=== PATIENT | female | born 1985 | race Caucasian/White ===

== ENCOUNTER 2016-11-07 12:22 | Emergency (ER) | payer OTHER ==
[~2016-11-07] VITALS: Ht 170.2 cm; Wt 98.0 kg
[~2016-11-07 12:22] MED LIST: ALPR-411 PO; BUPR-79 PO; BUSP15TA70 PO; GABA-112 PO; PROM25TA9 PO
[2016-11-07 12:26] VITALS: TEMP 36.8; Ht 170.2 cm; Wt 98.0 kg
[2016-11-07] MEDS ORDERED: BUPRTAB51 PO (12:38)
[2016-11-07] MEDS ORDERED: PREG1CAP28 PO (12:40)
[2016-11-07] MEDS ORDERED: CLIN150C PO (12:42)
[2016-11-07] MEDS ORDERED: IBUP-1450 PO (12:43)
[2016-11-07] MEDS ORDERED: OXYC1TAB3 PO (13:26)
[2016-11-07 14:12] VITALS: BP 118/88; PULSE 96; O2SAT 98
--- NOTE | 2016-11-07 19:42 | EMERGENCY ROOM VISIT NOTE ---
History First contact with patient: 13:04 Chief Complaint: BACK PAIN Stated Complaint: LOW BACK PAIN,L LEG PAIN History of Present Illness The patient is a 31 year old female who presents to the Emergency Room with complaints of persistent lower back pain radiating into the left lower extremity. The patient reports that she has already had an extensive workup for her back. She most recently saw Dr. Palacios in [place], along with Dr. Callahan, both spine surgeons who did not suggest surgical intervention at this time. Dr. Palacios suggested massage therapy and aqua therapy for additional relief. The patient has undergone prior ANN [address] Flores. She also was evaluated by the [facility] in August. She is currently taking gabapentin, Lyrica and tramadol for her pain. The patient denies any significant recent worsening symptoms, lower extremity weakness, foot drop, bladder/bowel incontinence or saddle paresthesias. She is here to discuss further pain management options, and rates her discomfort a 6 out of 10. Review of Systems 10 system review was performed and was negative except for pertinent positives and negatives as indicated in history of present illness Past Medical/Surgical History Medical Problems: (1) Anxiety (2) Asthma (3) Bronchitis (4) decreased movement (5) Depression (6) intrau Surgical Problems: (1) History of tubal ligation (2) History of wisdom tooth extraction Family History FH: cancer FH: kidney disease FH: seizures Social History Smoking Status: Never Smoker Alcohol Use: none Drug Use: none Marital Status: Housing Status: lives with family Occupation Status: unemployed Current/Historical Medications Scheduled Bupropion (Wellbutrin-Xl), 300 MG PO DAILY Buspirone Hcl (Buspar), 15 MG PO BID Pregabalin (Lyrica), 75 MG PO BID Scheduled PRN Clindamycin Hcl (Cleocin), Unknown Dose PO Q6H PRN for Pain Cyclobenzaprine Hcl (Flexeril), 1 TAB PO TID PRN for Muscle Spasms Ibuprofen (Motrin), 600 MG PO Q6H PRN for Pain Oxycodone Ir (Roxicodone Ir), 1-2 TAB PO Q4H PRN for Pain Allergies Coded Allergies: Penicillins (Verified Allergy, Intermediate, HIVES, 11/07/16) Citalopram (Unverified Allergy, Unknown, hives, 11/07/16) Physical Exam Vital Signs Date Time Temp Pulse Resp B/P Pulse Ox O2 Delivery O2 Flow Rate FiO2 11/07/16 14:12 96 20 118/88 98 11/07/16 12:26 36.8 114 18 140/89 98 Room Air Physical Exam CONSTITUTIONAL: Healthy and well nourished. Alert and oriented X 3 with positive affect. She does not appear in any acute distress. HEENT: Normocephalic, atraumatic. Pupils equal, round and reactive. NECK: Full active range of motion without discomfort. RESPIRATORY: Clear to auscultation bilaterally with no wheezing, crackles, rhonchi or stridor. CARDIOVASCULAR: Regular rate and rhythm with no murmurs, rubs or gallops. GASTROINTESTINAL: Bowel sounds present in all quadrants. Soft and nontender to palpation. MUSCULOSKELETAL: Examination shows mild left lower lumbar tenderness to palpation. Negative logroll. Negative sitting straight leg raise. Pedal pulses are intact. Ankle plantar/dorsiflexion strength is 5 out of 5 and symmetric bilaterally. INTEGUMENTARY: No rash or other significant dermatologic conditions noted. NEUROLOGIC: Lower extremity deep tendon reflexes are 2+ and symmetric bilaterally. Medical Decision & Procedures ED Course Patient history and physical exam were performed. Nurse's notes were reviewed. I did review prior office notes from the pain clinic with date of service of 08/19/16. It was suggested that the patient continue with her current medications, and follow up with Dr. Palacios for evaluation. The patient has done this, and Dr. Palacios is suggesting nonsurgical management for now. At this point, I explained to the patient that she really should discuss further pain management issues with her PCP and the pain clinic. She was offered a prescription for OxyIR 5 mg as needed for breakthrough pain, and encouraged to alternate ibuprofen and Tylenol for baseline pain relief. I did explain to the patient that opioid pain management is not recommended given the chronic nature of her pain. I did discuss the risk for addiction with continued chronic ongoing opioid use. The patient voiced understanding, was happy with plan of care, refused any analgesics while in the emergency department, and rated her pain a 5 out of 10 at the time of discharge. Medical Decision See previous sections [place] Drug Monitoring Program Search Results: patient reviewed within database, no issues identified Impression Primary Impression: Left lumbar radiculitis Departure Information Dispostion Home / Self-Care Prescriptions Oxycodone Ir (Roxicodone Ir) 5 Mg Tab 1-2 TAB PO Q4H Y for Pain, #24 TAB For Initial Treatment Prov: Олег Adams PA 11/07/16 Referrals Upendra. Hurley M.D. Forms HOME CARE DOCUMENTATION FORM, IMPORTANT VISIT INFORMATION Patient Instructions A Signature Page, My [facility], ED Sciatica Additional Instructions Continue with your current medications. Ibuprofen 800 mg and/or Tylenol 1000 mg every 8 hours. You may also alternate these medications for more effective pain relief: Ibuprofen --4 HRS--> Tylenol --4 HRS--> ibuprofen --4 HRS--> Tylenol .... OxyIR if needed for worse pain. Discuss further treatment options with your PCP and [facility].
[2017-01-01] MEDS ORDERED: CYCL5TAB PO (09:34)
[2017-07-18] MEDS ORDERED: HYDR-4079 PO (10:41)
[2017-07-18] MEDS ORDERED: TOPI50TA24 PO (10:41)
[2017-07-18] MEDS ORDERED: BUSP5TAB59 PO (10:41)
== END 2016-11-07 14:15 | disposition home or self-care (01) ==
LOC: C.EDB 12:23 → C.EDD 14:15
DX: M54.16 Radiculopathy, lumbar region (principal); J45.909 Unspecified asthma, uncomplicated; F32.9 Major depressive disorder, single episode, unspecified; F41.9 Anxiety disorder, unspecified; Z79.899 Other long term (current) drug therapy

== ENCOUNTER 2017-01-01 14:34 | Emergency (ER) | payer OTHER ==
[~2017-01-01] VITALS: Ht 170.2 cm; Wt 100.4 kg
[~2017-01-01 14:34] MED LIST changes: -ALPR-411 PO; -BUPR-79 PO; +BUPRTAB51 PO; +CLIN150C PO; +CYCL5TAB PO; -GABA-112 PO; +IBUP-1450 PO; +OXYC1TAB3 PO; +PREG1CAP28 PO; -PROM25TA9 PO
[2017-01-01 14:44] VITALS: TEMP 37.2; Ht 170.2 cm; Wt 100.4 kg
[2017-01-01] MEDS ORDERED: PRED20TA PO (15:12)
[2017-01-01] MEDS ORDERED: HYDR-5688 PO ×2 (15:12→16:14)
--- NOTE | 2017-01-01 15:18 | EMERGENCY ROOM VISIT NOTE ---
ED Visit Note First contact with patient: 14:59 CHIEF COMPLAINT: Low back pain HISTORY OF PRESENT ILLNESS: This 31-year-old female patient presents to the emergency department complaining of pain in the low back which began worsening yesterday. The pain was gradual in onset, is now constant and worse with movement. The patient notes the pain as dull and a 7/10. The patient has taken Flexeril and tramadol without relief of the pain. The patient denies any loss of control of their bowel or bladder functions. There has been no leg numbness or weakness, and no change in sensation. No nausea or vomiting or abdominal pain. No chest pain or shortness of breath. No dysuria or increased urinary frequency. The patient has a history of ongoing back issues. She states that she is a surgical candidate, but is not able to undergo surgery because of her family situation. The patient has followed with orthospine and pain management. She states her last MRI was about 2 weeks ago which showed bulging of L5-S1 with impingement. The patient does not have new trauma, and feels this is similar to her chronic pain when it is exacerbated. REVIEW OF SYSTEMS: A review of systems was performed with positives and pertinent negatives listed in the history of present illness. All other systems were reviewed and are negative. 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 Vital signs stable. GENERAL: White female, in no acute distress, nondiaphoretic, well-developed well -nourished. SKIN: The skin was without rashes, erythema, edema, or bruising. Capillary refill less than 2 seconds. NECK: Supple without nuchal rigidity. No cervical spine tenderness. No paraspinous muscle tenderness. HEART: Regular rate and rhythm without murmurs gallops or rubs. LUNGS: Clear to auscultation bilaterally without wheezes, rales or rhonchi. ABDOMEN: Positive bowel sounds x 4. Normal tympanic percussion. Soft, nontender, without masses or organomegaly. Jackson sign negative. MUSCULOSKELETAL: No muscle atrophy, erythema, or edema noted of the back. There is left sided tenderness over the lumbar spinous processes. There is no significant tenderness over the paraspinous muscles bilateral. There is no tenderness over the thoracic spine or paraspinous muscles. There are no muscle spasms present. The patient is slow to move around with maximum tenderness with flexion. Positive straight leg raise test. NEURO: Patient was alert and oriented to person place and time. Normal sensation to light and sharp touch. Deep tendon reflexes 2+ in the lower extremities. Dorsalis pedis pulse 2+ bilaterally. Strength 5/5 and equal in the bilateral lower extremities. EMERGENCY DEPARTMENT COURSE: Physical exam and history were performed. Nursing notes and EMR were reviewed. Evidently the patient has a long-standing history of back pain, and states that she is a surgical candidate. She has been seen a few times in her lifetime at this facility for back pain. She states that she had an MRI 2 weeks ago, and without acute traumatic injury I do not feel additional imaging is necessary at this time. She certainly does not present like cauda equina, spinal abscess, or other acute surgical process. The patient and I had a lengthy discussion regarding options of care. I will provide her a short course of Vicodin and prednisone. She is to use her Flexeril at home. I did review her profile in the [place] drug monitoring program, and she does receive small amounts of tramadol through her primary care physician's office. I do not see any suspicious seeking behavior at this time. The patient was asked to follow-up with her paint crew supervisor and her primary care physician/orthopedic surgeon. She was invited back to the ER anytime with any new, worsening, or concerning symptoms. Current/Historical Medications Scheduled Bupropion (Wellbutrin-Xl), 300 MG PO DAILY Buspirone Hcl (Buspar), 15 MG PO BID Prednisone (Prednisone), 0 PO DAILY Pregabalin (Lyrica), 75 MG PO BID Scheduled PRN Clindamycin Hcl (Cleocin), Unknown Dose PO Q6H PRN for Pain Cyclobenzaprine Hcl (Flexeril), 1 TAB PO TID PRN for Muscle Spasms Hydrocodone/Acetaminophen 5MG/325MG ([place] 5MG/325MG), 1 TABLET PO Q6 PRN for Pain Ibuprofen (Motrin), 600 MG PO Q6H PRN for Pain Oxycodone Ir (Roxicodone Ir), 1-2 TAB PO Q4H PRN for Pain Allergies Coded Allergies: Penicillins (Verified Allergy, Intermediate, HIVES, 11/07/16) Citalopram (Unverified Allergy, Unknown, hives, 11/07/16) Pregabalin (Verified Adverse Reaction, Intermediate, Water retention, difficulty breathing, 01/01/17) Vital Signs Date Time Temp Pulse Resp B/P Pulse Ox O2 Delivery O2 Flow Rate FiO2 01/01/17 14:44 37.2 123 18 132/91 100 Room Air Departure Information Impression Primary Impression: Left-sided low back pain with sciatica Dispostion Home / Self-Care Condition FAIR Prescriptions Prednisone (Prednisone) 20 Mg Tab 0 PO DAILY, #18 TAB 3 DAILY FOR 3 DAYS, THEN 2 DAILY FOR 3 DAYS, THEN 1 DAILY FOR 3 DAYS. Prov: Regis Norman PA-C 01/01/17 Hydrocodone/Acetaminophen 5MG/325MG ([place] 5MG/325MG) Tab 1 TABLET PO Q6 Y for Pain, #12 TAB For Initial Treatment Prov: Regis Norman PA-C 01/01/17 Forms HOME CARE DOCUMENTATION FORM, IMPORTANT VISIT INFORMATION Patient Instructions My [facility] Additional Instructions You were seen and evaluated today on an emergency basis only. This is not a substitute for, or an effort to provide, complete comprehensive medical care. It is not possible to recognize and treat all injuries or illnesses in a single emergency department visit. For this reason it is recommended that you followup with your orthopedic surgery specialist and paint crew supervisor for ongoing care and evaluation. For baseline pain relief you may alternate ibuprofen and acetaminophen every 4 hours for pain control. Take 600 mg ibuprofen (Advil) and then 4 hours later take 1000 mg acetaminophen (Tylenol). Do not take more than 3000 mg acetaminophen in a single day. [place] (hydrocodone/acetaminophen) 5/325 mg every 6 hours as needed for worsening breakthrough pain. Do not drink or drive on [place]. This medication will likely make you tired. Do not take [place] and Tylenol at the same time as both contain acetaminophen. [place] may cause constipation. You may wish to take an [id number] stool softener like Colace if this occurs. Take prednisone as prescribed. Continue Flexeril at home as previously provided You are welcome to return to the emergency department anytime with new, worsening, or concerning symptoms.
[2017-01-01] MEDS ORDERED: PRVHFAIN INH (15:25)
[2017-01-01] MEDS ORDERED: BUSP-8 PO (15:25)
[2017-01-01] MEDS ORDERED: BUPR150T5 PO (15:25)
[2017-01-01] MEDS ORDERED: TOPI25TA99 PO (15:25)
[2017-01-01] MEDS ORDERED: IBUP-1277 PO (15:25)
[2017-01-01 15:33] VITALS: BP 133/89; PULSE 107; O2SAT 98
[2017-07-18] MEDS ORDERED: TOPI50TA24 PO (10:41)
[2017-07-18] MEDS ORDERED: BUSP5TAB59 PO (10:41)
[2017-07-18] MEDS ORDERED: HYDR-4079 PO (10:41)
== END 2017-01-01 15:35 | disposition home or self-care (01) ==
LOC: C.EDB 14:36 → C.EDD 15:35
DX: M54.42 Lumbago with sciatica, left side (principal); G89.29 Other chronic pain; Z79.52 Long term (current) use of systemic steroids; Z79.899 Other long term (current) drug therapy

== ENCOUNTER → 2017-03-23 | Outpatient (CLI) | payer OTHER ==
[~2017-03-23] MED LIST changes: +BUPR150T5 PO; -BUPRTAB51 PO; +BUSP-8 PO; -BUSP15TA70 PO; +BUSP5TAB59 PO; -CLIN150C PO; +HYDR-4079 PO; +HYDR-5688 PO; +IBUP-1277 PO; -IBUP-1450 PO; -OXYC1TAB3 PO; +PRED20TA PO; -PREG1CAP28 PO; +PRVHFAIN INH; +TOPI25TA99 PO; +TOPI50TA24 PO
== END | disposition home or self-care (01) ==
LOC: C.PAPS 10:23
PROVIDERS: ATTEND Physician Assistant
DX: Z12.4 Encounter for screening for malignant neoplasm of cervix (principal)

== ENCOUNTER → 2017-03-23 | Outpatient (CLI) | payer OTHER ==
[2017-03-23 15:40] LABS: BASO % 0.8 %; BASO ABS # 0.05 K/uL (0-0.2); COMPLETE YES; EOS % 6.2 %; HEMATOCRIT 39.7 % (37-47); IG% 0.3 %; LYMPH % 31.9 %; MEAN CELL VOLUME 87.8 fL (80-100); MEAN CORPUSCULAR HEMOGLOBIN 30.8 pg (25-34); MEAN PLATELET VOLUME 10.7 fL (7.4-10.4); MONO % 8.2 %; NEUT % 52.6 %; PLATELET COUNT 210 K/uL (130-400); RED BLOOD COUNT 4.52 M/uL (4.2-5.4); WHITE BLOOD COUNT 6.59 K/uL (4.8-10.8)
== END | disposition home or self-care (01) ==
LOC: C.LAB1850 14:06
PROVIDERS: ATTEND Physician Assistant
DX: N92.0 Excessive and frequent menstruation with regular cycle (principal)

== ENCOUNTER → 2017-07-12 | Outpatient (CLI) | payer SELFPAY ==
[~2017-07-12] MED LIST changes: -HYDR-5688 PO; -PRED20TA PO
[2017-07-12 14:01] LABS: BASO % 0.5 %; BASO ABS # 0.04 K/uL (0-0.2); COMPLETE YES; HEMATOCRIT 40.6 % (37-47); IG% 0.3 %; LYMPH % 23.3 %; MEAN CELL VOLUME 90.2 fL (80-100); MEAN CORPUSCULAR HEMOGLOBIN 30.4 pg (25-34); MEAN CORPUSCULAR HGB CONC 33.7 g/dl (32-36); MEAN PLATELET VOLUME 11.5 fL (7.4-10.4); MONO % 7.5 %; NEUT % 64.4 %; PLATELET COUNT 194 K/uL (130-400); WHITE BLOOD COUNT 7.72 K/uL (4.8-10.8)
== END | disposition home or self-care (01) ==
LOC: C.LABBC 09:31
PROVIDERS: ATTEND Orthopaedic Surgery Orthopaedic Surgery of the Spine
DX: Z01.812 Encounter for preprocedural laboratory examination (principal)

== ENCOUNTER 2017-07-24 07:19 | Inpatient (IN) | payer OTHER ==
[2017-07-18 10:42] VITALS: BMI 31.0
[2017-07-24] VITALS (10 sets, daily range): BP systolic 100–128; BP diastolic 58–80; PULSE 88–118; TEMP 36.3–36.9; O2SAT 99–100; Ht 170.2 cm; Wt 88.0 kg
[~2017-07-24] VITALS: Ht 170.2 cm; Wt 88.0 kg
[~2017-07-24 07:19] MED LIST changes: -BUSP-8 PO; +CLINDAMYCIN 600 MG/54 ML D5W IV SCH; +LACTATED RINGER'S 1000ML 1,000 ML IV SCH; +SODIUM CHLORIDE 0.9% 1000ML 1,000 ML IV SCH; -TOPI25TA99 PO
[2017-07-24] MEDS ORDERED: NEOSTIGMINE METHYLSULFATE 5 MG/5 ML SYR ONE (08:44)
[2017-07-24] MEDS ORDERED: DEXAMETHASONE SOD INJ 4 MG/ML VIAL ONE (08:44)
[2017-07-24] MEDS ORDERED: ONDANSETRON INJ 2 MG/ML 2 ML VIAL ONE (08:44)
[2017-07-24] MEDS ORDERED: GLYCOPYRROLATE INJ 0.2 MG/ML VIAL ONE (08:44)
[2017-07-24] MEDS ORDERED: MIDAZOLAM HCL 1 MG/ML 2ML VIAL ONE ×2 (08:44→09:50)
[2017-07-24] MEDS ORDERED: LIDOCAINE HCL 2% 2 ML VIAL (20MG/ML) ONE (08:44)
[2017-07-24] MEDS ORDERED: PROPOFOL IV EMULSION 10 MG/ML 20 ML VIAL IV ONE (08:44)
[2017-07-24] MEDS ORDERED: FENTANYL CITRATE INJ 50 MCG/1 ML 2 ML VIAL ONE ×3 (08:45→11:04)
--- NOTE | 2017-07-24 08:56 | History and Physical ---
History & Physical Date Jul 24, 2017. Chief Complaint Back and lower extremity difficulty paresthesias inability to function and inability to lift and move her children and function appropriately History of Present Illness The patient is a 32 year old female with complaints of back and significant lower extremity difficulty mostly back pain dominant over leg pain Past Medical/Surgical History Medical Problems: (1) Anxiety (2) Asthma (3) Bronchitis (4) decreased movement (5) Depression (6) intrau Surgical Problems: (1) History of tubal ligation (2) History of wisdom tooth extraction Additional History Hepatic Disease: No Endocrine Disorder: No Kidney Disease: No Hypertension: No Heart Disease: No Bleeding Tendencies: No Infectious Diseases: No Allergies Coded Allergies: Penicillins (Verified Allergy, Intermediate, HIVES, 07/24/17) Citalopram (Unverified Allergy, Unknown, hives, 07/24/17) Pregabalin (Verified Adverse Reaction, Intermediate, Water retention, difficulty breathing, 07/24/17) Home Medications Scheduled Bupropion Hcl (Bupropion Hcl Xl), 150 MG PO QAM Buspirone Hcl (Buspirone Hcl), 5 MG PO BID Topiramate (Topamax), 50 MG PO BID Scheduled PRN Albuterol (Ventolin Hfa), 2 PUFFS INH UD PRN for SOB/Wheezing Cyclobenzaprine Hcl (Flexeril), 15 MG PO TID PRN for Muscle Spasm Hydrocodone/Acetaminophen 10MG/325MG ([place] 10MG/325MG), 1-2 TABS PO Q6H PRN for Pain Ibuprofen (Advil), 400-600 MG PO Q6H PRN for Pain Physical Examination Skin: warm/dry Eyes: normal inspection ENT: normal ENT inspection Head: normocephalic Neck: supple Respiratory/Chest: lungs clear Cardiovascular: regular rate, rhythm Abdomen / GI: normal bowel sounds Back: normal inspection Extremities: normal inspection Genitourinary - Female: external genitalia normal Neurologic/Psych: no motor/sensory deficits Diagnosis Degenerative and unstable disc segment of the spine at L5-S1 ASA Classification: ASA Class II Plan of Treatment Posterior lumbar interbody fusion L5-S1
[2017-07-24] MEDS ORDERED: SCOPOLAMINE 1.5 MG TDSY TD ONE (09:04)
[2017-07-24] MEDS ORDERED: THROMBIN FOR SOLN 20000 UNIT KIT ONE (09:12)
[2017-07-24] MEDS ORDERED: GELATIN SPONGE SZ 100 ONE (09:12)
[2017-07-24] MEDS ORDERED: BUPIVACAINE/EPINEPHRINE 0.5% MPF 1:200,000 30 ML VIAL ONE (09:13)
[2017-07-24] MEDS ORDERED: BACITRACIN 50000 UNIT VIAL ONE (09:13)
[2017-07-24] MEDS ORDERED: VANCOMYCIN HCL 1000MG/20ML VIAL ONE ×3 (09:13→10:15)
[2017-07-24] MEDS ORDERED: NURSING VERBAL MED ORDER ONE (09:15)
[2017-07-24] MEDS ORDERED: EpHEDrine SULFATE INJ 50 MG/ML AMP IV PRN (09:30)
[2017-07-24] MEDS ORDERED: ONDANSETRON INJ 2 MG/ML 2 ML VIAL IV PRN ×2 (09:30→12:15)
[2017-07-24] MEDS ORDERED: ATROPINE SULFATE 0.1 MG/ML 5ML SYR IV PRN (09:30)
[2017-07-24] MEDS ORDERED: ESMOLOL HCL 10 MG/ML 10 ML VIAL ONE (09:55)
--- NOTE | 2017-07-24 11:45 | DIAGNOSTIC IMAGING REPORT ---
SPINE ONE VIEW, ANY LEVEL CLINICAL HISTORY: L5-S1 FUSION/INTERBODY COMPARISON STUDY: Lumbar spine MRI December 09, 2016. Fluoroscopy time: 13 seconds. FINDINGS: Single lateral fluoroscopic image demonstrates an L5-S1 discectomy with interbody spacer placement. There are pedicle screws at the L5 and S1 levels. IMPRESSION: Lateral fluoroscopic image demonstrating an L5-S1 discectomy with L5 and S1 pedicle screws. Electronically signed by: Sj Gleason M.D. 07/24/2017 11:44 AM Dictated Date/Time: 07/24/2017 11:43 AM
[2017-07-24] MEDS ORDERED: ROCURONIUM BROMIDE 10 MG/ML 5 ML VIAL IV ONE (11:48)
--- NOTE | 2017-07-24 12:07 | [facility] Post Operative Brief Note ---
Immediate Operative Summary Operative Date Jul 24, 2017. Pre-Operative Diagnosis Degenerative and unstable disc segment of the spine at L5-S1 Post-Operative Diagnosis Degenerative and unstable disc segment of the spine at L5-S1 Procedure(s) Performed L5-S1 Posterior Lumbar Interbody Fusion Surgeon Dr. Martinez Mortgage Loan Officer Surgeon(s) Fan Nuñez PA-C Estimated Blood Loss 50ml Findings instability Specimens none per surgeon Disposition Recovery Room / PACU
[2017-07-24] MEDS ORDERED: LORAZEPAM 1 MG TAB PO PRN (12:15)
[2017-07-24] MEDS ORDERED: HYDROmorphone INJ 2 MG/ML SYR/VIAL IV PRN (12:15)
[2017-07-24] MEDS ORDERED: LORAZEPAM INJ 1 MG in SYRINGE 0 ML IV PRN (12:15)
[2017-07-24] MEDS ORDERED: MAGNESIUM HYDROXIDE SUSP 30 ML UDC PO PRN (12:15)
[2017-07-24] MEDS ORDERED: METOCLOPRAMIDE HCL INJ 5 MG/ML 2 ML VIAL IV PRN (12:15)
[2017-07-24] MEDS ORDERED: ALBUTEROL HFA 8 GM INHALER INH PRN (12:15)
[2017-07-24] MEDS ORDERED: PROMETHAZINE HCL INJ 12.5 MG in SODIUM CHLORIDE 0.9% 50ML 50 ML IV PRN (12:15)
[2017-07-24] MEDS ORDERED: ACETAMINOPHEN 325 MG TAB PO PRN (12:15)
[2017-07-24] MEDS ORDERED: OXYCODONE/ACETAMINOPHEN 5-325 TAB PO PRN ×2 (12:15)
[2017-07-24] MEDS: FENTANYL CITRATE INJ 50 MCG/1 ML 2 ML VIAL IV PRN ×4 (12:19→12:39)
[2017-07-24] MEDS ORDERED: MoRPHine SULFATE 4 MG/ML 1 ML CARP\\VIAL ONE (13:02)
[2017-07-24] MEDS: MoRPHine SULFATE 10 MG/ML CARP/VIAL IV PRN ×2 (13:03→13:08)
--- NOTE | 2017-07-24 13:34 | OPERATIVE REPORT ---
DATE OF OPERATION: 07/24/2017 PREOPERATIVE DIAGNOSIS: Instability, lumbar spine L5-S1, severely degenerative disk L5-S1, lumbar spine. PROCEDURE: Posterior lumbar interbody fusion, L5-S1, decompression of nerve roots. We used 2 bilateral cage implants and polyethylene ketone placed in the interval at L5-S1 locked down with a pedicle screw construct single level, L5 to the sacrum. We also bone grafted out over the transverse processes to complete the 360 fusion. SURGEON: Dr. Martinez. FILLER BLOCK INSERTER REMOVER: Fan Nuñez PA-C. COMPLICATIONS: Zero. BLOOD LOSS: Less than 50. COMORBIDITIES: Included obesity. DESCRIPTION OF PROCEDURE: The patient was taken to the operating room, a general intubated anesthetic provided to the patient, placed prone, scrubbed, prepped and draped sterile. We commenced with surgery, we made a skin incision and fascia incision. We came down right at the interspace of L5-S1, putting in deep self-retaining retractor. We decompressed the neural elements which will be the 5th and S1 nerve roots bilaterally taking off ligamentum and lamina, doing a complete laminectomy, partial facetectomy. We safely instrumented the spine. I was able to get pedicle screws safely placed and anatomically located at the sacrum and L5 on the left and sacrum and L5 on the right, very pleased with the positioning. We then retracted the dura left side, right side and did an interbody bone grafting, complete discectomy was offered, plus an interbody device placed at L5-S1 bilateral. We tightened down the construct. We bone grafted out over the transverse processes. Prior to this, we had irrigated with approximately 600 mL of fluid. We spread vancomycin in the deep layer and the superficial layer, closed in layers over a Hemovac drain. Sterile dressings applied. The patient returned to PACU stable. Sponge and needle count correct. No complications. I attest to the content of the Intraoperative Record and any orders documented therein. Any exception s are noted below.
--- NOTE | 2017-07-24 14:29 | Anesthesiology Progress Note ---
Anesthesia Post Op Note Date & Time Jul 24, 2017 at 14:29 Vital Signs Vital Signs Past 12 Hours Date Time Temp Pulse Resp B/P (MAP) Pulse Ox O2 Delivery O2 Flow Rate FiO2 07/24/17 14:23 100 Nasal Cannula 4.0 07/24/17 13:50 100 Nasal Cannula 4.0 07/24/17 13:50 36.7 116 16 125/77 (93) 100 Nasal Cannula 4.0 07/24/17 13:35 118 18 130/71 100 Nasal Cannula 4 07/24/17 13:20 36.4 121 18 133/83 100 Nasal Cannula 4 07/24/17 13:10 121 18 125/78 100 Oxymask 10 07/24/17 13:00 118 18 129/71 100 Nasal Cannula 4 07/24/17 12:50 106 18 137/71 100 Oxymask 10 07/24/17 12:40 85 18 150/62 100 Oxymask 10 07/24/17 12:30 36.4 110 18 143/75 100 Oxymask 10 07/24/17 12:20 113 18 132/67 100 Oxymask 10 07/24/17 12:14 36.1 127 18 108/65 100 Oxymask 10 07/24/17 08:08 36.9 118 18 114/75 (88) 100 Room Air Notes Mental Status: alert / awake / arousable, participated in evaluation Pt Amnestic to Procedure: Yes Nausea / Vomiting: adequately controlled Pain: adequately controlled Airway Patency, RR, SpO2: stable & adequate BP & HR: stable & adequate Hydration State: stable & adequate Anesthetic Complications: no major complications apparent
[2017-07-24] MEDS: SODIUM CHLORIDE 0.9% 1000ML 1,000 ML IV SCH ×2 (14:50→23:34)
[2017-07-24] MEDS: HYDROmorphone INJ 1 MG/ML SYR IV PRN ×2 (14:53→20:02)
[2017-07-24] MEDS: ACETAMINOPHEN IV 1,000 MG in EMPTY BAG 0 ML IV SCH ×2 (15:47→23:35)
[2017-07-24] MEDS: KETOROLAC TROMETHAMINE 30 MG/ML VIAL IV. SCH ×2 (15:48→21:48)
[2017-07-24] MEDS: CHECK SCOPOLAMINE PATCH PLACEMENT SCH ×2 (15:48→23:35)
[2017-07-24] MEDS: DEXAMETHASONE INJ 10 MG in SYRINGE 0 ML IV SCH (17:52)
[2017-07-24] MEDS: CLINDAMYCIN IV 600 MG in DEXTROSE 5% 50ML 50 ML IV SCH (17:55)
[2017-07-24] MEDS: TOPIRAMATE 25 MG TAB PO SCH (21:46)
[2017-07-25] MEDS: CLINDAMYCIN IV 600 MG in DEXTROSE 5% 50ML 50 ML IV SCH (01:51)
[2017-07-25] MEDS: DEXAMETHASONE INJ 10 MG in SYRINGE 0 ML IV SCH ×3 (01:51→18:39)
[2017-07-25 03:38] VITALS: BP 104/63; PULSE 105; TEMP 36.8; O2SAT 100
[2017-07-25] MEDS: KETOROLAC TROMETHAMINE 30 MG/ML VIAL IV. SCH ×3 (03:53→15:42)
[2017-07-25] MEDS ORDERED: NURSING VERBAL MED ORDER ONE (05:30)
[2017-07-25] MEDS ORDERED: BISACODYL 10 MG SUPP PR PRN (06:00)
[2017-07-25] MEDS ORDERED: BISACODYL 5 MG TABEC PO PRN (06:00)
[2017-07-25 07:39] VITALS: BP 128/77; PULSE 120; PULSE 80; TEMP 36.8; O2SAT 98
--- NOTE | 2017-07-25 07:56 | Discharge Instructions ---
Discharge Instructions Date of Service Jul 25, 2017. Admission Reason for Admission: Degenerative Disc Disease Discharge Discharge Diagnosis / Problem: instability L5-S1 Discharge Goals Goal(s): Improve function Activity Recommendations Activity Limitations: as noted below Lifting Limitations: until after follow-up appointment Exercise/Sports Limitations: until after follow-up appointment May Resume Sexual Activity: after follow-up appointment Shower/Bathe: keep incision dry . Instructions / Follow-Up Instructions / Follow-Up MEDICATIONS: Please take your prescriptions as instructed at your pre-op appointment. SPECIAL CARE: The following information is intended to answer some of the common questions and concerns regarding your surgery. Each patient is an individual and receives individual counselling throughout the course of treatment, from diagnosis to surgery all the way through recovery. What follows is not an exhaustive list, but should be a useful guide to some of the common questions and concerns patients have regarding their surgeries. These are not provided to keep you from calling us; rather, they give you something accurate and concrete to reference as you recover from your procedure. If you need us, we are available to you. As always, if you are not sure about something, call us at [phone]. MEDICAL EMERGENCIES: For these conditions, call 911 or go to your local hospital-based Emergency Department - not [facility] or equivalent. * Paralysis * Severe chest pain or difficulty breathing * Swelling or redness of either leg Spine procedures can be rather complex and though complications are rare, they do occur. In such cases, effective advice regarding emergency situations cannot always be addressed over the telephone. You may be referred to the emergency department for more effective management of your problem. Activity Limitations: It is important to give your body time to heal, so please limit your activities : * In general, don't do anything that moves your spine too much. You should avoid contact sports, twisting or heavy lifting while you recover. * 5-10 pounds is all you should attempt to lift. * You should not plan on driving for approximately 3 weeks and you should avoid traveling more than 30-45 minutes at a time. Longer trips should be broken down with walking breaks spaced appropriately. * Physical therapy is not usually required. * Walking and good posture practices will help you recover and regain your function. * Avoid straining or sudden changes in position. * In general, the goal is to take it easy and recover. Don't cause any new problems. Just relax. Showers: * Do not take a bath, use a Jacuzzi or hot tub or otherwise submerge your incision. * It is usually safe to take a shower 4-5 days after your surgery. * Your incision does not require any special creams or ointments. * Simply clean it with soap and water, dry and re-dress with a clean bandage afterwards. Incision: * Keep incision clean, dry and protected until your first follow-up appointment. * Some amount of drainage and redness is normal. Any drainage should be fairly clear and not have a foul odor. * If you feel anything is wrong or you have excessive drainage, please call us. * Your stitches and colby will be removed 10-14 days after your surgery. At the time of your first post-op visit. * Neck surgeries are typically closed with a suture underneath the skin. The steri-strips over the incision should be maintained until we see you in the office. Bracing: * You may be provided with a back or neck brace to encourage good posture and prevent injury. It will remind you not to do too much as you heal and will alert others to the fact that you have had a surgery. * Back braces may be removed for showers and when you are resting at home. They must be worn when you are walking around for any period of time or for travel. * For neck surgery, you will likely be provided with two cervical collars. The soft collar (Leivasy or foam rubber) is worn most commonly throughout the day and while sleeping. The plastic collar (provided at the hospital) is for showering/bathing. * Except while eating, collars should remain in place. More specifically, bracing is provided for a purpose and should be worn. * Please obtain your brace or collars prior to your operation and bring them to the hospital with you on the day of surgery. * You should also bring your collars to your post-op appointment with Dr. Martinez. You should always take good care of your body and practice healthy habits, especially following surgery. You should: * Follow your doctor's treatment plan * Sit and stand properly with good posture (ears over shoulders, shoulders over hips) Don't slouch * Learn to lift correctly * Exercise regularly (low-impact aerobic exercise is especially good, but check with your doctor first) * Generally, be up and walking for 5-10 minutes at a time at least 3-4 times per day from the day you get home * Increasing walking to tolerance until you can walk for 20-30 minutes at a time * Attain and maintain a healthy body weight * Eat healthy foods ( a well-balanced, low-fat diet rich in fruits and vegetables) and get enough calcium * Avoid excessive use of alcohol When to call our office - If you notice any of the following: * Increased pain not relieve by pain medicine * Fevers greater then 100 degrees F, chills or flu symptoms * Increased redness around incision * Drainage from the incision that is not clear * Any foul smelling drainage * Swelling or fluid collection beneath the skin Miscellaneous: * In the hospital, you may be given a walker or cane for support while walking. These are temporary needs and are intended to prevent injuries due to falls. You may discontinue them when you feel strong and steady enough on your feet. * Sleep in a comfortable position. We find that many patients find a lounge chair or recliner with several pillows to be beneficial in the early post-operative period. * The support stockings should be used for 7-10 days and may be discontinued when you are back to walking more and conducting usual household activities. No problem is insignificant. We are here to help you and get you well. Contact us at [phone]. Definitions: Foraminotomy: If part of the disc or a bone spur (osteophyte) is pressing on a nerve as it leaves the vertebra (through an exit called the foramen), a foraminotomy may be done. Otomy means "to make an opening." A foraminotomy is making the opening of the foramen larger, so the nerve can exit without being compressed. Laminotomy: Similar to the foraminotomy, a laminotomy makes a larger opening, this time in your bony plate protecting your spinal canal and spinal cord (the lamina). The lamina may be pressing on your nerve, so the surgeon may make more room for the nerves using a laminotomy. Laminectomy: Sometimes, a laminotomy is not sufficient. The surgeon may need to remove all or part of the lamina. This procedure is called a laminectomy. This can often be done at many levels without any harmful effects. Current Hospital Diet Patient's current hospital diet: Regular Diet Discharge Diet Recommended Diet: Regular Diet Procedures Procedures Performed: L5-S1 Posterior Lumbar Interbody Fusion Pending Studies Studies pending at discharge: no Medical Emergencies . Who to Call and When: Medical Emergencies: If at any time you feel your situation is an emergency, please call 911 immediately. . Non-Emergent Contact Non-Emergency issues call your: Surgeon . "Provider Documentation" section prepared by Nikolas Martinez. . VTE Core Measure Inpt VTE Proph given/why not?: Treatment not indicated
[2017-07-25] MEDS: CHECK SCOPOLAMINE PATCH PLACEMENT SCH ×2 (08:03→15:46)
[2017-07-25] MEDS: HYDROmorphone INJ 1 MG/ML SYR IV PRN ×2 (08:16→15:28)
[2017-07-25] MEDS: ACETAMINOPHEN IV 1,000 MG in EMPTY BAG 0 ML IV SCH ×2 (08:17→15:42)
[2017-07-25] MEDS: POLYETHYLENE (MIRALAX) 17 GM PACK PO SCH (08:17)
[2017-07-25] MEDS: TOPIRAMATE 25 MG TAB PO SCH ×2 (08:18→20:52)
[2017-07-25] MEDS: BuPROPion XL 150 MG TABCR PO SCH (08:18)
--- NOTE | 2017-07-25 08:59 | Anesthesiology Progress Note ---
Anesthesia Post Op Note Date & Time Jul 25, 2017 at 08:58 Vital Signs Pain Intensity: 6.0 Vital Signs Past 12 Hours Date Time Temp Pulse Resp B/P (MAP) Pulse Ox O2 Delivery O2 Flow Rate FiO2 07/25/17 07:59 Room Air 07/25/17 07:39 36.8 120 14 128/77 (94) 98 Room Air 80 07/25/17 03:38 36.8 105 16 104/63 (77) 100 Room Air 07/24/17 23:40 Room Air 07/24/17 22:58 36.9 105 14 117/61 (79) 99 Room Air Notes Mental Status: alert / awake / arousable, participated in evaluation Pt Amnestic to Procedure: Yes Nausea / Vomiting: adequately controlled Pain: adequately controlled Airway Patency, RR, SpO2: stable & adequate BP & HR: stable & adequate Hydration State: stable & adequate Anesthetic Complications: no major complications apparent
[2017-07-25 12:07] VITALS: BP 105/69; PULSE 110; TEMP 36.4; O2SAT 100
[2017-07-25 15:13] VITALS: BP 112/65; PULSE 116; TEMP 36.8; O2SAT 100
[2017-07-25 23:27] VITALS: BP 111/69; PULSE 78; TEMP 36.5; O2SAT 97
[2017-07-26] MEDS: ACETAMINOPHEN IV 1,000 MG in EMPTY BAG 0 ML IV SCH ×2 (00:09→08:39)
[2017-07-26] MEDS: CHECK SCOPOLAMINE PATCH PLACEMENT SCH ×2 (00:09→08:00)
[2017-07-26] MEDS: HYDROmorphone INJ 1 MG/ML SYR IV PRN ×3 (00:10→10:15)
[2017-07-26] MEDS: DEXAMETHASONE INJ 10 MG in SYRINGE 0 ML IV SCH (01:05)
[2017-07-26 07:05] VITALS: BP 118/69; PULSE 103; TEMP 36.7; O2SAT 97
[2017-07-26] MEDS: BuPROPion XL 150 MG TABCR PO SCH (08:38)
[2017-07-26] MEDS: POLYETHYLENE (MIRALAX) 17 GM PACK PO SCH (08:38)
[2017-07-26] MEDS: TOPIRAMATE 25 MG TAB PO SCH (09:17)
[2017-07-26 09:30] VITALS: BP 118/69; PULSE 103; TEMP 36.7; O2SAT 97
[2017-07-26] MEDS ORDERED: INFLUENZA ADMINISTRATION CHARGE ONE (09:45)
[2017-07-26] MEDS ORDERED: INFLUENZA VIRUS QUAD VACCINE 0.5 ML SYR IM. ONE (09:45)
--- NOTE | 2017-08-02 11:43 | DISCHARGE SUMMARY ---
She is improved, stable. Rounded on each and every day. OBJECTIVE: Vital signs are stable. Alert, oriented. Mentation normal, no confusion. No chest pain or shortness of breath. ASSESSMENT: Status post lumbar spine reconstructive surgery. DISPOSITION: She will be discharged home. Instructions, precautions provided. Medication provided. She has a followup appointment. Instructions given in the office and here at the hospital.
== END 2017-07-26 11:38 | disposition home or self-care (01) | DRG 460 ==
LOC: C.ACU 07:19 → C.3E 12:11 → ENRESERV 13:29
PROVIDERS: ADMIT Orthopaedic Surgery Orthopaedic Surgery of the Spine; ATTEND Orthopaedic Surgery Orthopaedic Surgery of the Spine
PROC: 0SG30A1 (ICD-10-PCS; principal; 2017-07-24 09:30)
PROC: 0ST40ZZ Resection of Lumbosacral Disc, Open Approach (ICD-10-PCS; principal; 2017-07-24 09:30)
DX: M51.37 Other intervertebral disc degeneration, lumbosacral region (principal); M53.2X7 Spinal instabilities, lumbosacral region; F41.9 Anxiety disorder, unspecified; F32.9 Major depressive disorder, single episode, unspecified; Z79.899 Other long term (current) drug therapy

== ENCOUNTER 2017-12-23 18:12 | Emergency (ER) | payer OTHER ==
[~2017-12-23] VITALS: Ht 170.2 cm; Wt 91.5 kg
[~2017-12-23 18:12] MED LIST changes: -CLINDAMYCIN 600 MG/54 ML D5W IV SCH; -LACTATED RINGER'S 1000ML 1,000 ML IV SCH; -SODIUM CHLORIDE 0.9% 1000ML 1,000 ML IV SCH
[2017-12-23 18:16] VITALS: TEMP 36.6; Ht 170.2 cm; Wt 91.5 kg
[2017-12-23] MEDS ORDERED: SODIUM CHLORIDE 0.9% 500ML 500 ML IV STA ×2 (18:49→22:33)
[2017-12-23] MEDS ORDERED: ONDANSETRON INJ 2 MG/ML 2 ML VIAL IV PRN (19:00)
--- NOTE | 2017-12-23 19:11 | EMERGENCY ROOM VISIT NOTE ---
History First contact with patient: 18:38 Chief Complaint: ABDOMINAL PAIN Stated Complaint: ABD PAIN, POSSIBLE BROKEN R FOOT Nursing Triage Summary: pt reports low abdominal pain X 1 day difficulty urinating also 2L bottle of soda fell on R foot History of Present Illness The patient is a 32 year old female who presents to the Emergency Room with complaints of diffuse abdominal pain has gotten progressively worse over the last 4 days. The pain started on the left side of her abdomen. It is now radiating to the right side. She describes as a sharp, razor blade sensation that is constant. She has tried ibuprofen with minimal relief of the pain. Her last menses was a few days ago. She has had mild nausea. No vomiting. She has not had a bowel movement in 2 days, but this is normal for her. She denies any fever or chills. She is having some difficulty urinating. Review of Systems 10 system review performed and negative unless noted in HPI or below Past Medical/Surgical History Medical Problems: (1) Anxiety (2) Asthma (3) Bronchitis (4) decreased movement (5) Degenerative disc disease at L5-S1 level (6) Depression (7) intrau Surgical Problems: (1) History of tubal ligation (2) History of wisdom tooth extraction Family History FH: cancer FH: kidney disease FH: seizures Social History Smoking Status: Never Smoker Alcohol Use: none Drug Use: none Marital Status: Housing Status: lives with family Occupation Status: unemployed Current/Historical Medications Scheduled Buspirone Hcl (Buspirone Hcl), 5 MG PO BID Ciprofloxacin Hcl (Cipro), 500 MG PO BID Gabapentin (Neurontin), 300 MG PO DAILY Topiramate (Topamax), 100 MG PO BID Venlafaxine Hcl (Effexor Xr), 1 CAP PO DAILY Scheduled PRN Albuterol (Ventolin Hfa), 2 PUFFS INH UD PRN for SOB/Wheezing Cyclobenzaprine Hcl (Flexeril), 15 MG PO TID PRN for Muscle Spasm Hydrocodone/Acetaminophen 5MG/325MG ([place] 5MG/325MG), 1-2 TABLET PO Q4H PRN for Pain Ibuprofen (Advil), 400-600 MG PO Q6H PRN for Pain Physical Exam Vital Signs Date Time Temp Pulse Resp B/P (MAP) Pulse Ox O2 Delivery O2 Flow Rate FiO2 12/23/17 23:20 90 20 118/73 100 Room Air 12/23/17 22:54 99 20 128/83 100 Room Air 12/23/17 21:50 100 20 127/73 100 Room Air 12/23/17 20:30 81 20 127/73 99 Room Air 12/23/17 19:12 102 20 122/68 100 Room Air 12/23/17 18:16 36.6 121 20 129/78 96 Room Air Physical Exam VITALS: Vitals are noted on the nurse's note and reviewed by myself. Vital signs stable. GENERAL: 32-year-old female, in no acute distress, nondiaphoretic, well- developed well-nourished. SKIN: The skin was without rashes, erythema, edema, or bruising. HEAD: Normocephalic atraumatic. MOUTH: Mucous membranes slightly dry NECK: Supple without nuchal rigidity. No lymphadenopathy. Cervical spine is nontender. No JVD. HEART: Regular rate and rhythm without murmurs gallops or rubs. LUNGS: Clear to auscultation bilaterally without wheezes, rales or rhonchi. No accessory muscle use. ABDOMEN: Bowel sounds present, but hypoactive. Mild left-sided CVA tenderness noted..Soft, mild tenderness to palpation in the left lower quadrant, without organomegaly. No guarding or rebound tenderness. MUSCULOSKELETAL: Mild ecchymosis noted on the dorsal aspect of the right foot. Sensation in the toes is intact. Capillary refill less than 2 seconds. DP pulse +2. No tenderness over the ankle. Strength 5/5 throughout. NEURO: Patient was alert and oriented to person place and time. Normal sensation to touch. No focal neurological deficits. Medical Decision & Procedures ER Provider Diagnostic Interpretation: foot xray IMPRESSION: No acute fracture or dislocation within the right foot. Electronically signed by: Sj Gleason M.D. 12/23/2017 7:50 PM Dictated Date/Time: 12/23/2017 7:48 PM The status of this report is Signed. Draft = Not yet reviewed or approved by Radiologist. Signed = Reviewed and approved by Radiologist. renal US IMPRESSION: 1. No hydronephrosis. 2. Findings raising the possibility of medullary nephrocalcinosis. Electronically signed by: Sj Gleason M.D. 12/23/2017 10:17 PM Dictated Date/Time: 12/23/2017 10:15 PM The status of this report is Signed. Draft = Not yet reviewed or approved by Radiologist. Signed = Reviewed and approved by Radiologist. <AttendingPhy></AttendingPhy> <FamilyPhy>Niyah Mckeon C.R.N.P</FamilyPhy> < PrimaryPhy>Niyah Mckeon C.R.N.P</PrimaryPhy> <UnitNumber>[id number]</ UnitNumber> <VisitNumber>[id number]</VisitNumber> <PatientName>EDIN RYAN</PatientName> <DateOfBirth>1985</DateOfBirth> <Location>[facility]</Location > <ServiceDate>12/23/17</ServiceDate> <MNE>ESINDI</MNE> <OrderingPhy>Leidy Murdock PA-C</OrderingPhy> <OrderingPhyMNE>f rep ord dr butterfield</OrderingPhyMNE> < DictatingPhyMNE>f rep dict dr butterfield</DictatingPhyMNE> <CCListMNE>f rep ct mne</ CCListMNE> <AdmittingPhyMNE>f pt admit dr butterfield</AdmittingPhyMNE> <AttendingPhyMNE >f pt attend dr butterfield</AttendingPhyMNE> <ConsultingPhyMNE>f pt consult dr butterfield</ConsultingPhyMNE> <FamilyPhyMNE>f pt fam dr butterfield</FamilyPhyMNE> <OtherPhyMNE>f pt other dr butterfield</OtherPhyMNE> < PrimaryPhyMNE>f pt prim care dr butterfield</PrimaryPhyMNE> <ReferringPhyMNE>f pt referring dr butterfield</ReferringPhyMNE> Laboratory Results 12/23/17 19:10 Red Blood Count 4.27, Mean Corpuscular Volume 88.5, Mean Corpuscular Hemoglobin 31.4, Mean Corpuscular Hemoglobin Concent 35.4, Mean Platelet Volume 10.2, Neutrophils (%) (Auto) 52.1, Lymphocytes (%) (Auto) 32.5, Monocytes (%) (Auto) 6.8, Eosinophils (%) (Auto) 7.6, Basophils (%) (Auto) 0.6, Neutrophils # (Auto) 4.19, Lymphocytes # (Auto) 2.62, Monocytes # (Auto) 0.55, Eosinophils # (Auto) 0.61, Basophils # (Auto) 0.05 12/23/17 19:10 Test 12/23/17 19:10 12/23/17 19:15 White Blood Count 8.05 K/uL (4.8-10.8) Red Blood Count 4.27 M/uL (4.2-5.4) Hemoglobin 13.4 g/dL (12.0-16.0) Hematocrit 37.8 % (37-47) Mean Corpuscular Volume 88.5 fL (80-100) Mean Corpuscular Hemoglobin 31.4 pg (25-34) Mean Corpuscular Hemoglobin Concent 35.4 g/dl (32-36) Platelet Count 189 K/uL (130-400) Mean Platelet Volume 10.2 fL (7.4-10.4) Neutrophils (%) (Auto) 52.1 % Lymphocytes (%) (Auto) 32.5 % Monocytes (%) (Auto) 6.8 % Eosinophils (%) (Auto) 7.6 % Basophils (%) (Auto) 0.6 % Neutrophils # (Auto) 4.19 K/uL (1.4-6.5) Lymphocytes # (Auto) 2.62 K/uL (1.2-3.4) Monocytes # (Auto) 0.55 K/uL (0.11-0.59) Eosinophils # (Auto) 0.61 K/uL (0-0.5) Basophils # (Auto) 0.05 K/uL (0-0.2) RDW Standard Deviation 41.9 fL (36.4-46.3) RDW Coefficient of Variation 13.0 % (11.5-14.5) Immature Granulocyte % (Auto) 0.4 % Immature Granulocyte # (Auto) 0.03 K/uL (0.00-0.02) Anion Gap 9.0 mmol/L (3-11) Est Creatinine Clear Calc Drug Dose 90.2 ml/min Estimated GFR () 82.3 Estimated GFR (Non- 71.0 BUN/Creatinine Ratio 13.8 (10-20) Calcium Level 8.3 mg/dl (8.5-10.1) Total Bilirubin 0.3 mg/dl (0.2-1) Aspartate Amino Transf (AST/SGOT) 30 U/L (15-37) Alanine Aminotransferase (ALT/SGPT) 38 U/L (12-78) Alkaline Phosphatase 86 U/L (45-117) Total Protein 7.2 gm/dl (6.4-8.2) Albumin 3.8 gm/dl (3.4-5.0) Globulin 3.4 gm/dl (2.5-4.0) Albumin/Globulin Ratio 1.1 (0.9-2) Lipase 129 U/L (73-393) Human Chorionic Gonadotropin, Qual NEG (NEG) Urine Color YELLOW Urine Appearance CLOUDY (CLEAR) Urine pH 5.0 (4.5-7.5) Urine Specific [place] 1.018 (1.000-1.030) Urine Protein NEG (NEG) Urine Glucose (UA) NEG (NEG) Urine Ketones NEG (NEG) Urine Occult Blood 1+ (NEG) Urine Nitrite NEG (NEG) Urine Bilirubin NEG (NEG) Urine Urobilinogen NEG (NEG) Urine Leukocyte Esterase LARGE (NEG) Urine WBC (Auto) >30 /hpf (0-5) Urine RBC (Auto) 5-10 /hpf (0-4) Urine Hyaline Casts (Auto) 5-10 /lpf (0-5) Urine Epithelial Cells (Auto) >30 /lpf (0-5) Urine Bacteria (Auto) 4+ (NEG) Medications Administered Medications (Trade) Dose Ordered Sig/Archie Route Start Time Stop Time Status Last Admin Dose Admin Morphine Sulfate (MoRPHine SULFATE INJ) 4 mg Q1H PRN IV 12/23/17 19:00 18 00:31 DC 12/23/17 21:55 4 MG Ondansetron HCl (Zofran Inj) 4 mg Q2H PRN IV 12/23/17 19:00 12/24/17 00:31 DC 12/23/17 19:13 4 MG Sodium Chloride 500 ml @ 999 mls/hr Q31M STAT IV 12/23/17 18:49 12/23/17 19:19 DC 12/23/17 19:14 999 MLS/HR Ciprofloxacin/ Dextrose (Cipro / D5W) 400 mg NOW STAT IV 12/23/17 20:13 12/23/17 20:17 DC 12/23/17 20:29 400 MG Sodium Chloride 500 ml @ 999 mls/hr Q31M STAT IV 12/23/17 22:33 12/23/17 23:03 DC 12/23/17 22:33 999 MLS/HR Acetaminophen/ Hydrocodone Bitart ([place] 5/325mg Home Pack) 1 [facility] UD ONCE PO 12/23/17 22:45 12/23/17 22:46 DC 12/23/17 23:20 1 HOMEPACK ED Course Patient was seen and examined Vital signs including blood pressure were reviewed medications list was verified with patient Labs were obtained, and a saline lock was established The patient was medicated with morphine and Zofran. She was hydrated with 500 mL normal saline. The patient's workup was reviewed. She was reassessed. She was more comfortable. We discuss her results. She voiced understanding. The patient was given 1 dose of Cipro 400 mg IV. She did require an additional dose of morphine. The patient was still slightly tachycardic. She was given an additional 500 mL normal saline bolus, which improved her heart rate. The patient was given a home pack of [place]. I reviewed discharge instructions the patient. They voiced understanding and had no further questions. Medical Decision Differential diagnosis: Ureteral stone, pyelonephritis, UTI, interstitial cystitis, pancreatitis, gastritis, bowel obstruction, constipation, foot contusion/fracture At this patient is a 32-year-old female that presents to the emergency department with worsening abdominal pain and urinary symptoms over the last 4 days. She also dropped a 2 L soda bottle on her foot tonight. On exam, she was nontoxic in appearance. She had mild left-sided CVA tenderness. Her workup reveals no leukocytosis. Her renal function is intact. It does appear that she has a UTI. Given this and her slight CVA tenderness, this is likely a pyelonephritis. I ordered an ultrasound to evaluate her for nephritic stranding /abscess. Renal calcinosis was noted. This is chronic. There were no other acute findings. She is otherwise healthy. I believe she is stable to be discharged home on oral antibiotics for 2 weeks. She was comfortable with this plan. She will be given a short course of narcotic pain medication and was encouraged to follow-up within the next 24-48 hours with her primary care physician. She also agrees to return to the emergency department with any new, worsening or concerning symptoms This chart was completed in part utilizing [employer] Speech Voice Recognition software. Attempts were made to minimize the grammatical errors, random word insertions, pronoun errors and incomplete sentences. Any formal questions or concerns about the content, text or information contained within the body of this dictation should be directly addressed to the provider for clarification. Medication Reconcilliation Current Medication List: was personally reviewed by me Blood Pressure Screening Patient's blood pressure: Normal blood pressure Impression Primary Impression: Pyelonephritis Departure Information Dispostion Home / Self-Care Condition FAIR Prescriptions Hydrocodone/Acetaminophen 5MG/325MG ([place] 5MG/325MG) Tab 1-2 TABLET PO Q4H Y for Pain, #10 TAB For Initial Treatment Prov: Leidy Murdock PA-C 12/23/17 Ciprofloxacin Hcl (CIPRO) 500 Mg Tab 500 MG PO BID for 14 Days, #28 TAB Prov: Leidy Murdock PA-C 12/23/17 Referrals Niyah Mckeon C.R.NSilvana (PCP) Patient Instructions My [facility], Pyelonephritis - [facility] Additional Instructions You have been evaluated in the emergency department for flank/abdominal pain. It appears that you have a urinary tract infection and likely pyelonephritis, which is an infection of the kidney. It is very important for you to finish the entire course of antibiotics Ibuprofen 600 mg every 8 hours as needed for pain [place] 1-2 tabs every 4 hours for severe pain. Do not drink alcohol or drive while taking this medication. This may be taken with ibuprofen, but avoid Tylenol. Please increase fluids over the next several days Please follow-up with your primary care physician as soon as possible. Call Monday morning for a follow-up appointment. Please do not hesitate to return to the emergency department with any new, worsening or concerning symptoms; especially, fever, worsening pain or vomiting It was a pleasure participating in your care School Instructions Return To School: 2 days
[2017-12-23] MEDS: MoRPHine SULFATE 4 MG/ML 1 ML CARP\\VIAL IV PRN ×2 (19:13→21:55)
[2017-12-23] MEDS ORDERED: VENL150C PO (19:29)
[2017-12-23] MEDS ORDERED: GABA-113 PO (19:29)
[2017-12-23] MEDS ORDERED: TOPI100T20 PO (19:29)
[2017-12-23 19:33] LABS: BASO % 0.6 %; BASO ABS # 0.05 K/uL (0-0.2); EOS % 7.6 %; EOS ABS # 0.61 K/uL (0-0.5); HEMATOCRIT 37.8 % (37-47); HEMOGLOBIN 13.4 g/dL (12.0-16.0); IG# 0.03 K/uL (0.00-0.02); LYMPH % 32.5 %; LYMPH ABS # 2.62 K/uL (1.2-3.4); MEAN CELL VOLUME 88.5 fL (80-100); MEAN CORPUSCULAR HEMOGLOBIN 31.4 pg (25-34); MEAN CORPUSCULAR HGB CONC 35.4 g/dl (32-36); MEAN PLATELET VOLUME 10.2 fL (7.4-10.4); MONO % 6.8 %; MONO ABS # 0.55 K/uL (0.11-0.59); NEUT % 52.1 %; NEUT ABS # 4.19 K/uL (1.4-6.5); PLATELET COUNT 189 K/uL (130-400); RED CELL DISTRIBUTION WIDTH SD 41.9 fL (36.4-46.3); WHITE BLOOD COUNT 8.05 K/uL (4.8-10.8)
[2017-12-23 19:51] LABS: ALBUMIN 3.8 gm/dl (3.4-5.0); CALCIUM 8.3 mg/dl (8.5-10.1); CREATININE 1.04 mg/dl (0.60-1.20); POTASSIUM 3.4 mmol/L (3.5-5.1)
--- NOTE | 2017-12-23 19:51 | DIAGNOSTIC IMAGING REPORT ---
R FOOT MIN 3 VIEWS ROUTINE CLINICAL HISTORY: dropped soda bottle on R foot COMPARISON: None FINDINGS: The tarsometatarsal joints are intact. There is no acute fracture within the right foot. IMPRESSION: No acute fracture or dislocation within the right foot. Electronically signed by: Sj Gleason M.D. 12/23/2017 7:50 PM Dictated Date/Time: 12/23/2017 7:48 PM
[2017-12-23 19:54] LABS: TOTAL PROTEIN 7.2 gm/dl (6.4-8.2)
[2017-12-23] MEDS ORDERED: CIPROFLOXACIN 400MG / 200ML D5W IV STA (20:13)
--- NOTE | 2017-12-23 22:18 | DIAGNOSTIC IMAGING REPORT ---
RENAL ULTRASOUND CLINICAL HISTORY: L flank pain, UTI ? pyelo COMPARISON STUDY: None. TECHNIQUE: Sonography of the kidneys and the urinary bladder was performed. FINDINGS: The right kidney measures 11 x 4.1 x 6.6 cm and the left measures 11.1 x 5 x 6.2 cm. There is no hydronephrosis. There is apparent renal cortical thinning with increased echogenicity of the renal pyramids. No shadowing calculi are identified. The right ureteral jet was not visualized. The left ureteral jet was identified. IMPRESSION: 1. No hydronephrosis. 2. Findings raising the possibility of medullary nephrocalcinosis. Electronically signed by: Sj Gleason M.D. 12/23/2017 10:17 PM Dictated Date/Time: 12/23/2017 10:15 PM
[2017-12-23] MEDS ORDERED: CIPR-255 PO (22:36)
[2017-12-23] MEDS ORDERED: HYDR-5688 PO (22:36)
[2017-12-23] MEDS ORDERED: NORCO 5/325MG HOME PACK PO ONE (22:45)
[2017-12-23 23:20] VITALS: BP 118/73; PULSE 90; O2SAT 100
== END 2017-12-23 23:41 | disposition home or self-care (01) ==
LOC: C.EDB 18:13 → C.EDC 23:41
DX: N12 Tubulo-interstitial nephritis, not specified as acute or chronic (principal); S90.31XA Contusion of right foot, initial encounter; W20.8XXA Other cause of strike by thrown, projected or falling object, initial encounter; E83.59 Other disorders of calcium metabolism; R00.0 Tachycardia, unspecified; R11.0 Nausea; J45.909 Unspecified asthma, uncomplicated; F41.8 Other specified anxiety disorders; Z84.1 Family history of disorders of kidney and ureter; Z82.0 Family history of epilepsy and other diseases of the nervous system

== ENCOUNTER → 2017-12-29 | Outpatient (CLI) | payer OTHER ==
[~2017-12-29] MED LIST changes: -BUPR150T5 PO; +CIPR-255 PO; +GABA-113 PO; -HYDR-4079 PO; +HYDR-5688 PO; +TOPI100T20 PO; -TOPI50TA24 PO; +VENL150C PO
--- NOTE | 2017-12-29 15:47 | DIAGNOSTIC IMAGING REPORT ---
PELVIC ULTRASOUND CLINICAL HISTORY: Lower quadrant abdominal pain. Evaluate for ectopic versus ovarian cyst. COMPARISON STUDY: Pelvic ultrasound January 08, 2012. TECHNIQUE: Transabdominal and transvaginal sonography of the pelvis was performed. FINDINGS: The uterus measures 9.3 x 4.9 x 4.9 cm. No intrauterine gestational sac is noted. Endometrium measures 1.4 cm in thickness. The left ovary was not visualized. No adnexal mass was identified. The right ovary measures 4 x 2.6 x 3.1 cm and contains a dominant follicle and measures 2.4 cm. There is no free fluid. IMPRESSION: 1. No intrauterine gestational sac or adnexal mass identified. Correlation with beta hCG levels is recommended. If positive, serial beta hCG levels and a follow-up pelvic ultrasound are recommended. 2. Nonvisualization of the left ovary. 3. Dominant follicle within the right ovary. Electronically signed by: Sj Gleason M.D. 12/29/2017 3:46 PM Dictated Date/Time: 12/29/2017 3:43 PM
== END | disposition home or self-care (01) ==
LOC: C.ULTR 14:59
PROVIDERS: ATTEND Nurse Practitioner
DX: R10.31 Right lower quadrant pain (principal)

== ENCOUNTER 2018-01-14 10:13 | Emergency (ER) | payer OTHER ==
[~2018-01-14] VITALS: Ht 170.2 cm; Wt 92.9 kg
[2018-01-14 10:24] VITALS: TEMP 36.8; Ht 170.2 cm; Wt 92.9 kg
--- NOTE | 2018-01-14 11:23 | DIAGNOSTIC IMAGING REPORT ---
CHEST 2 VIEWS ROUTINE CLINICAL HISTORY: cough x 2 weeks COMPARISON STUDY: No previous studies for comparison. FINDINGS: The cardiac and mediastinal contours are normal. There is no evidence of focal pulmonary consolidation. There is no evidence of failure. No pleural effusions are visualized.[ IMPRESSION: No active disease in the chest. Electronically signed by: Jayson Camp M.D. 01/14/2018 11:21 AM Dictated Date/Time: 01/14/2018 11:21 AM
[2018-01-14 11:24] LABS: INFLUENZA B ANTIGEN Neg for Influ B (NEG)
[2018-01-14] MEDS ORDERED: AZITHROMYCIN 250 MG TAB PO STA (11:41)
[2018-01-14] MEDS ORDERED: AZIT500T PO (11:45)
[2018-01-14] MEDS ORDERED: HYDR5SYP11 PO (11:45)
--- NOTE | 2018-01-14 11:46 | EMERGENCY ROOM VISIT NOTE ---
History First contact with patient: 10:28 Chief Complaint: OTHER COMPLAINT Stated Complaint: THROAT PAIN,BACK PAIN FROM MUSCLE SCAR History of Present Illness The patient is a 32 year old female who presents to the Emergency Room with complaints of cough for 2 weeks. The patient also is complaining of sore throat since Monday. The patient denies any fever. She does admit that she has pain radiating from her throat up to her ears. The patient states that her cough is productive. She is using an albuterol inhaler which he was given by her PCP on Monday when she saw her for the same symptoms. She is using the inhaler every 4 hours. She was told at that time that her symptoms are viral. The patient states that her one child has strep. The patient denies any chest pain or shortness of breath. Review of Systems 10 system review was performed and was negative unless stated otherwise history of present illness. Past Medical/Surgical History Medical Problems: (1) Anxiety (2) Asthma (3) Bronchitis (4) decreased movement (5) Degenerative disc disease at L5-S1 level (6) Depression (7) intrau Surgical Problems: (1) History of tubal ligation (2) History of wisdom tooth extraction Family History FH: cancer FH: kidney disease FH: seizures Social History Smoking Status: Never Smoker Alcohol Use: none Drug Use: none Marital Status: Housing Status: lives with family Occupation Status: unemployed Current/Historical Medications Scheduled Buspirone Hcl (Buspirone Hcl), 5 MG PO BID Gabapentin (Neurontin), 300 MG PO DAILY Topiramate (Topamax), 100 MG PO BID Venlafaxine Hcl (Effexor Xr), 1 CAP PO DAILY Scheduled PRN Albuterol (Ventolin Hfa), 2 PUFFS INH UD PRN for SOB/Wheezing Ibuprofen (Advil), 400-600 MG PO Q6H PRN for Pain Physical Exam Vital Signs Date Time Temp Pulse Resp B/P (MAP) Pulse Ox O2 Delivery O2 Flow Rate FiO2 01/14/18 10:24 36.8 128 20 131/91 99 Room Air Physical Exam PHYSICAL EXAM: Vital Signs were reviewed temperature 36.8, blood pressure 131/91 , pulse 128, respiratory rate 20: Reviewed Nurse's notes and agree. Oxygen saturation is 99 % on room air which is normal . GENERAL: 32-year-old female appears in no acute distress. MENTAL STATUS: Alert, oriented, coherent. EARS: Canals clear. TMs good light reflex, no erythema or fluid level noted. NOSE: Nasal mucosa with moderate erythema engorgement. PHARYNX: Moderate erythema, no edema noted. No exudate noted. Airway is adequate. NECK: Supple, non-tender. No lymphadenopathy noted. LUNGS: Clear to auscultation without wheezes rales or rhonchi. CARDIAC: Regular rate and rhythm without murmur. SKIN: No rashes noted. Medical Decision & Procedures ER Provider Diagnostic Interpretation: CHEST 2 VIEWS ROUTINE CLINICAL HISTORY: cough x 2 weeks COMPARISON STUDY: No previous studies for comparison. FINDINGS: The cardiac and mediastinal contours are normal. There is no evidence of focal pulmonary consolidation. There is no evidence of failure. No pleural effusions are visualized.[ IMPRESSION: No active disease in the chest. Electronically signed by: Jayson Camp M.D. 01/14/2018 11:21 AM Laboratory Results Test 01/14/18 10:50 Influenza Type A Antigen Neg for Influ A (NEG) Influenza Type B Antigen Neg for Influ B (NEG) Date/Time Source Procedure Growth Status 01/14/18 10:50 Throat Group A Streptococcus Screen - Final SPECIMEN POSITIVE FOR GROUP A BETA ST... Complete 01/14/18 10:50 Throat Group A Streptococcus Screen (PASTOR) - Final Complete ED Course The patient was evaluated. Rapid strep was positive. Rapid influenza was negative for influenza A and negative for influenza B. Chest x-ray was ordered interpreted by the radiologist and myself as above without any acute findings. Patient was informed of the findings. The patient was given Zithromax 500 mg p.o. while in the ER. The patient was discharged home in stable condition.. Medical Decision Differential diagnoses include viral pharyngitis, strep pharyngitis, influenza, bronchitis, pneumonia [place] Drug Monitoring Program Search Results: patient reviewed within database Medication Reconcilliation Current Medication List: was personally reviewed by ca Blood Pressure Screening Patient's blood pressure: Normal blood pressure Impression Primary Impression: Strep pharyngitis Additional Impression: URI (upper respiratory infection) Departure Information Dispostion Home / Self-Care Condition GOOD Prescriptions Hydrocodone W/ Homatropine (HYCODAN 5/1.5MG 5 ML) 1 Syp Syp 5-10 ML PO Q4H Y for Cough, #200 ML Prov: Scott, Mery M., PA-C 01/14/18 Azithromycin (ZITHROMAX) 500 Mg Tab 500 MG PO DAILY for 4 Days, #4 TABS Prov: Mery Chavez PA-C 01/14/18 Referrals Niyah Mckeon C.R.N.P (PCP) Forms WORK / SCHOOL INSTRUCTIONS, HOME CARE DOCUMENTATION FORM, IMPORTANT VISIT INFORMATION Patient Instructions [facility], Sore Throat Additional Instructions Follow sore throat handout instructions. Push fluids. Rest. Tylenol and/or ibuprofen as needed for fever and body aches. Take Zithromax as prescribed. Continue albuterol inhaler 2 puffs every 4 hours through the day and then take Hycodan syrup at night for cough. If symptoms persist or worsen, follow-up with your family doctor for recheck. Problem Qualifiers Additional Impression: URI (upper respiratory infection) URI type: unspecified viral URI Qualified Codes: J06.9 - Acute upper respiratory infection, unspecified
[2018-01-14 12:07] VITALS: BP 114/80; PULSE 88; O2SAT 100
== END 2018-01-14 11:55 | disposition home or self-care (01) ==
LOC: C.EDB 10:17 → C.EDA 11:55
DX: J02.0 Streptococcal pharyngitis (principal); J45.909 Unspecified asthma, uncomplicated; Z84.1 Family history of disorders of kidney and ureter; Z82.0 Family history of epilepsy and other diseases of the nervous system